=== PATIENT | female | born 1970 | race Caucasian/White ===

== ENCOUNTER → 2021-03-06 09:28 | Outpatient (CLI) | payer OTHER, SELFPAY ==
--- NOTE | ~2021-03-06 | MR_ITS ---
EXAMINATION: MR knee RT wo con DATE: 03/06/2021 10:12 INDICATION: Right knee pain TECHNIQUE: Magnetic resonance imaging (MRI) of the right knee was performed without intravenous contr ast. Sequences included coronal PD-weighted FSE, coronal PD-weighted FS FSE, sagittal T2-weighted FS E, sagittal PD-weighted FS FSE and axial PD weighted fat saturated FSE. COMPARISON: None. FINDINGS: Medial compartment: Partial thickness radial tear at the lateral side of the posterior horn of the medial meniscus. There is mild medial extrusion of the meniscal body. Partial-thickness chondral ulceration involving great er than 50% the cartilage thickness chondral surface regularity without degenerative subchondral short ges at the anterior weightbearing medial femoral condyle. Less severe partial thickness cartilage los s along the medial half of the medial tibial plateau and along the central to posterior weightbearing medial femoral condyle. Small marginal osteophytes are present. Lateral compartment: Increased signal along the inner free edge of the body of the lateral meniscus which could represent fraying versus small tear of indeterminate morphology. Small central osteophyte filling a deep chondr al ulceration at the junction of the anterior to central weightbearing medial femoral condyle. There is deep chondral fissuring at the juxtaposed central aspect of the lateral tibial plateau. Less sever e partial thickness cartilage loss with smooth chondral surface regularity along the posterior weight bearing lateral femoral condyle. Small to moderate size marginal osteophytes are present. Patellofemoral compartment: Extensive deep chondral ulceration with underlying cortical irregularity and scattered subarticular e migdalia and cystic change at the lateral patellar facet, apical ridge and along the cephalad half of the lateral trochlea and trochlear groove. Subarticular cystic change at the cephalad aspect of the apic al ridge. Less severe partial thickness cartilage loss with chondral surface regularity and partial-t hickness fissuring at the medial facet and medial trochlea. Small to moderate size marginal osteophyt es are present. Ligaments and tendons: Anterior and posterior cruciate ligaments are normal. Small intraosseous ganglion cyst at the interco ndylar eminence which appears to originate along the anterior cruciate ligament footplate. The medial collateral ligament is normal. There is mild thickening and increased signal without surrounding aleida ma at the proximal fibular collateral ligament consistent with scarring related to chronic sprain. Th e extensor mechanism is normal. The visualized medial and lateral hamstring tendons as well as the il iotibial band are normal. Fluid: Physiologic amount of fluid in the joint space. No loose osteochondral bodies identified. Small Yanes 's cyst measuring 4.7 x 3.2 x 1.2 cm. Osseous/other: No fracture or pathologic marrow replacing process. IMPRESSION: 1. Partial thickness radial tear at the posterior horn of the medial meniscus. 2. Fraying versus small tear of indeterminate morphology along the inner free edge of the body of the lateral meniscus. 3. Tricompartmental osteoarthritis, severe with extensive high-grade chondral malacia in the bilatera l aspect of the patellofemoral compartment and mild with moderate to high-grade chondromalacia in the medial and lateral compartments. 4. Mild scarring consistent with chronic sprain of the proximal fibular collateral ligament. 5. Small Yanes's cyst. Reviewed, dictated and finalized at location A. IMPRESSION: 1. Partial thickness radial tear at the posterior horn of the medial meniscus. 2. Fraying versus small tear of indeterminate morphology along the inner free e dg
== END ==
PROVIDERS: PCP Internal Medicine; Visit Provider Physician Assistant Medical
DX: M25.561 Pain in right knee (principal); S83.241A Other tear of medial meniscus, current injury, right knee, initial encounter; M17.11 Unilateral primary osteoarthritis, right knee; M94.261 Chondromalacia, right knee; M71.21 Synovial cyst of popliteal space [Baker], right knee
CPT/HCPCS: 73721

== ENCOUNTER → 2022-07-25 09:14 | Outpatient (CLI) | payer OTHER, SELFPAY ==
--- NOTE | ~2022-07-25 | MR_ITS ---
EXAMINATION: MR knee LT wo con DATE: 07/25/2022 09:55 INDICATION: Generalized left knee pain for one month, felt knee pop, no specific trauma TECHNIQUE: Magnetic resonance imaging (MRI) of the left knee was performed without intravenous contra st. Sequences included axial PD-weighted FS FSE, coronal PD-weighted FSE and PD-weighted FS FSE, sagi ttal PD-weighted FSE, and sagittal T2-weighted FS FSE. COMPARISON: X-ray left knee 06/25/2022. FINDINGS: Medial compartment: Meniscus intact. Mild diffuse thinning of cartilage. Full-thickness shearing type fissure on the weig htbearing surface the medial femoral condyle. Moderate osteophytosis. Lateral compartment: Meniscus intact. Mild diffuse thinning of cartilage. 5 mm full-thickness area of cartilage loss on th e tibial plateau. Moderate osteophytosis. Patellofemoral compartment: Severe thinning of cartilage. Moderate osteophytosis. Retinacula intact. Ligaments and tendons: MCL, LCL, ACL, and PCL are intact. Remaining flexor and extensor tendons are intact. Fluid: Small volume joint fluid. Small Yanes's cyst. Osseous/other: No suspicious focal or diffuse marrow signal. Multiloculated versus serpiginous fluid within the infr apatellar fat, possibly representing a ganglion or synovial cyst versus vascular structure. Mild lien a of the infrapatellar fat. Anterior subcutaneous edema. IMPRESSION: 1. Moderate tricompartmental osteoarthritic change. 2. Medial femoral condyle cartilage shearing and focal full-thickness cartilage loss on the lateral t ibial plateau. 3. Small joint effusion. 4. Infrapatellar fat pad impingement. 5. Small Yanes's cyst. Reviewed, dictated and finalized at location K. [employer] IMPRESSION: 1. Moderate tricompartmental osteoarthritic change. 2. Medial femoral condyle cartilage shearing and focal full-thickness cartilage loss on the lateral tibial plateau. 3. Small joint effusion. 4. Infrapatellar fat pad impingement. 5. Small Yanes's cyst.
== END ==
PROVIDERS: PCP Physician Assistant Medical; Visit Provider Physician Assistant Medical
DX: M17.12 Unilateral primary osteoarthritis, left knee (principal); M25.462 Effusion, left knee; M71.22 Synovial cyst of popliteal space [Baker], left knee
CPT/HCPCS: 73721

== ENCOUNTER → 2023-05-19 08:13 | Outpatient (CLI) | payer OTHER, SELFPAY ==
--- NOTE | ~2023-05-19 | MMUS_ITS ---
EXAMINATION: MM diagnostic ranulfo LT w ulises, US breast LT complete HISTORY: 2 nodular asymmetries reported in left mid to posterior depth of left breast on screening ou tside craniocaudal view of 04/13/2023 TECHNIQUE: Additional 3-D tomosynthesis images of the left breast were performed and synthetic 2-D im ages were generated. CAD analysis was submitted and interpreted. High resolution complete left breast ultrasound examination: Renal 4 quadrants and subareolar area was performed. COMPARISON: 04/13/2023 bilateral screening mammogram FINDINGS: MAMMOGRAPHIC FINDINGS: No suspicious mass or architectural distortion, malignant calcification, skin thickening or retractio n is detected. ULTRASOUND: No suspicious mass or shadowing is detected. IMPRESSION: 1. Nomammographic or sonographicevidence of malignancy 2. Routine annual mammographic screening is recommended BI-RADS Category 1: Negative Reviewed, dictated and finalized at location A. IMPRESSION: 1. Nomammographic or sonographicevidence of malignancy 2. Routine annual mammographic screening is recommended BI-RADS Category 1: Negative
== END ==
PROVIDERS: PCP Physician Assistant Medical
DX: R92.8 Other abnormal and inconclusive findings on diagnostic imaging of breast (principal)
CPT/HCPCS: 76641; 77061; 77065; G0279